=== PATIENT | male | born 1970 | race Caucasian/White ===

== ENCOUNTER 2018-11-27 13:10 | Emergency (ER) | payer OTHER ==
[~2018-11-27] VITALS: Ht 190.5 cm; Wt 131.5 kg
[~2018-11-27 13:10] MED LIST: BIAXIN500 MG; CHERATUSSIN AC118 ML PO; LEVAQUIN 500 M500 M2 PO; PRILOSEC 20 MG20 MG PO; PRILOSEC40 MG PO; SUDAFED 12 HOU120 MG PO
[2018-11-27 13:45] LABS: ABSOLUTE BASOPHILS 0.1 thou/uL (0.0-0.2); ABSOLUTE EOSINOPHILS 0.1 thou/uL (0.0-0.7); ABSOLUTE LYMPHOCYTES 1.2 thou/uL (0.8-5.3); ABSOLUTE MONOCYTES 0.4 thou/uL (0.0-1.2); HEMATOCRIT 44.5 % (42.0-52.0); HEMOGLOBIN 14.9 gm/dL (14.0-18.0); LYMPHOCYTES 17.7 %; MCH 27.9 pg (26.0-34.0); MCHC 33.5 g/dL (28.0-37.0); MCV 83.3 fL (80.0-100.0); MONOCYTES 6.2 %; MPV 8.6 fl. (7.2-11.1); NUCLEATED RBCS 0 /100WBC; PLATELET COUNT* 203 thou/uL (150-400); POLYS 73.1 %; RBC 5.35 mil/uL (4.50-6.00); WBC 6.8 thou/uL (4.0-11.0)
[2018-11-27 14:02] LABS: ANION GAP 7 mmol/L (7-16); APTT 24.9 Seconds (25.0-31.3); BUN 16 mg/dL (7-18); CALCIUM 8.5 mg/dL (8.5-10.1); CHLORIDE 105 mmol/L (98-107); CO2 30 mmol/L (21-32); CREATININE 1.1 mg/dL (0.6-1.3); GLUCOSE 92 mg/dL (70-99); POTASSIUM 3.7 mmol/L (3.5-5.1); PROTIME 9.8 Seconds (9.20-11.50); SODIUM 142 mmol/L (136-145)
[2018-11-27 14:11] LABS: URINE BILIRUBIN NEGATIVE (Negative); URINE BLOOD NEGATIVE (Negative); URINE CLARITY CLEAR; URINE COLOR YELLOW; URINE GLUCOSE-RANDOM NEGATIVE (Negative); URINE KETONES NEGATIVE (Negative); URINE LEUKOCYTES-REFLEX NEGATIVE (Negative); URINE NITRITE-REFLEX NEGATIVE (Negative); URINE PROTEIN NEGATIVE (Negative); URINE SPECIFIC GRAVITY 1.025 (1.005-1.030); URINE UROBILINOGEN 0.2 E.U./dl (0.2-1.0)
[2018-11-27 14:13] LABS: ALBUMIN 3.9 g/dL (3.4-5.0); ALKALINE PHOSPHATASE 98 U/L (46-116); NT-PRO BRAIN NAT PEPTIDE 67 pg/mL (<300); SGOT 15 U/L (15-37); SGPT 28 U/L (30-65); TOTAL BILIRUBIN 0.5 mg/dL (<0.1-1.0); TOTAL PROTEIN 7.3 g/dL (6.4-8.2); TROPONIN-I LEVEL <0.06 ng/mL (<0.06)
[2018-11-27 14:41] VITALS: BP 130/86
--- NOTE | 2018-11-27 15:13 | EKG ---
[place] [address] ELECTROCARDIOGRAM REPORT Name: GRIFFIN GEORGE Room: [facility]#: [id number] Admission: 11/27/18 Attend Phys: Discharge: 11/27/18 Date of : 72 Report #: [id number] THIS REPORT FOR: //name// [facility] ED Test Date: 2018-11-27 Test Time: 13:25:47 Pat Name: GRIFFIN GEORGE Department: Room: Gender: M [employer]: LC : 1970 Requested By: Augustus Khan Order Number: [id number] MD: Naga Paulino Measurements Intervals [place] Rate: 75 P: 15 MI: 178 QRS: -1 QRSD: 103 T: 17 QT: 394 QTc: 441 Interpretive Statements Sinus rhythm Compared to ECG 11/16/2016 04:16:46 no change Electronically Signed On 11-27-2018 15:12:43 [employer] by Naga Paulino [email or web address] <ELECTRONICALLY SIGNED> By: Naga Paulino MD, [facility] 11/27/18 1512 1325 1325 Naga Paulino MD, FACC /EPI
== END 2018-11-27 14:45 | disposition home or self-care (01) ==
LOC: M.ERS 13:10
PROVIDERS: Family Medicine
DX: R42 Dizziness and giddiness (principal); K21.9 Gastro-esophageal reflux disease without esophagitis; Z88.5 Allergy status to narcotic agent; Z90.49 Acquired absence of other specified parts of digestive tract